=== PATIENT | female | born 1955 | race Caucasian/White ===

== ENCOUNTER → 2021-06-10 | Outpatient (CLI) | payer MEDICARE | LOC: MC.RAD 05-17 13:15 | DX: Z12.31 Encounter for screening mammogram for malignant neoplasm of breast (principal) ==

== ENCOUNTER 2023-03-01 13:24 | Day surgery (SDC) | payer MEDICARE ==
[~2023-03-01] VITALS: Ht 165.1 cm; Wt 104.2 kg
[~2023-03-01 13:24] MED LIST: HCTZ12.5TAB PO; HYZAAR 50-12.1 UDTAB PO; LEVOXYL0.15 MG PO; MOTRIN 800800 MG/TAB PO; MULTI VITAMINS1 TAB PO; OCUVITE1 TA1 PO; PREDFORTE5ML OD; TROKEND50 PO; TYLENOL 500MG500 MG PO; VITAMIN B11000 MCG/M IM; VITAMIN D31000 IU PO
[2023-03-01 14:26] VITALS: BP 151/90; PULSE 84; TEMP 97.7
[2023-03-01] MEDS ORDERED: SYNTHROID0.137 MG (14:39)
[2023-03-01 17:40] VITALS: BP 114/82; PULSE 85; TEMP 97.4
[2023-03-01 17:55] VITALS: BP 122/64; PULSE 89
[2023-03-01 18:10] VITALS: BP 141/61; PULSE 86
[2023-03-01 18:25] VITALS: BP 116/60; PULSE 90
[2023-03-01 19:39] VITALS: BP 105/58; PULSE 94; TEMP 97.2
--- NOTE | 2023-03-01 19:47 | NUR ---
[id number]: PT TO RECOVERY BAY 8 FROM PACU S/P LEFT PAROTIDECTOMY A&O, PLACED ON MONITOR, VSS ON RA CARED FOR IN PACU AND SDC BY UNDERSIGNED FAMILY NOTIFIED AND BROUGHT TO BEDSIDE PROVIDED COFFEE AND PUDDING PER REQUEST, TOLERATING WELL ORDERS IN [employer] INCOMPLETE - T/C TO DR GARCIA @ 1800 - [facility] FOR F/U APPT (1WEEK), DRSG CARE AND D/C MEDS - ADDED TO DC INSTRUCTIONS. PT HAS REMAINED A&O, NAD, VSS ON RA, TOLERATING PO, IS WITHOUT SIGNIFICANT COMPLAINT, WITH STEADY GAIT THRU OUT STAY 1839 IV D/C'D. D/C INSTRUCTIONS, ANY FOLLOW UP REVIEWED AND HANDED TO PT. ALL QUESTIONS AND CONCERNS ADDRESSED TO PT SATISFACTION. ADDITIONAL DRSG SUPPLIES HANDED TO PT. 1849 TAKEN TO EXIT VIA W/C WITH ALL BELONGINGS AND PAPERWORK IN HAND, ASSISTED INTO PASSENGER SEAT OF POV. TO DRIVE HOME.
== END 2023-03-01 18:50 | disposition home or self-care (01) ==
LOC: SDCO 13:24
DX: D11.0 Benign neoplasm of parotid gland (principal); I10 Essential (primary) hypertension; Z87.891 Personal history of nicotine dependence
CPT/HCPCS: J1100; J2405; J2704; J3010; J7120